=== PATIENT | female | born 1940 | race Caucasian/White ===

== ENCOUNTER 2018-03-31 13:38 | Inpatient (IN) | payer MEDICARE, OTHER ==
[~2018-03-31] VITALS: Ht 165.1 cm; Wt 84.5 kg
[~2018-03-31 13:38] MED LIST: LISI10TA4 PO; NITR100C6 PO; POTA10TA36 PO; TRAM50TA2 PO
[2018-03-31] MEDS ORDERED: ondansetron/PF 4mg/2ml inj IV ONE (13:45)
[2018-03-31] MEDS ORDERED: normal saline 1000ML IV soln IVB ONE ×3 (13:45→15:05)
[2018-03-31 14:26] LABS: BASOPHILS % (AUTO) 0.1 % (0-1); EOSINOPHILS % (AUTO) 0.1 % (0-6); HEMATOCRIT 39.7 % (35.0-45.0); HEMOGLOBIN 12.7 g/dl (12.0-16.0); LYMPHOCYTES # (AUTO) 0.2 X10'3 (1.1-4.8); LYMPHOCYTES % (AUTO) 1.6 % (21-51); MEAN CORPUSCULAR HEMOGLOBIN 27.5 PG (27.0-31.0); MEAN CORPUSCULAR HGB CONC 32.1 % (33.0-36.5); MEAN CORPUSCULAR VOLUME 85.8 FL (78-98); MEAN PLATELET VOLUME 9.6 FL (7.4-10.4); MONOCYTES # (AUTO) 0.5 X10'3 (0-0.9); NEUTROPHILS # (AUTO) 11.3 X10'3 (1.8-7.7); NEUTROPHILS % (AUTO) 94.2 % (42-75); PLATELET COUNT 181 X10'3 (140-440); RED BLOOD COUNT 4.63 X10'6 (4.20-5.60)
[2018-03-31 14:35] LABS: INR 1.2 INR; PARTIAL THROMBOPLASTIN TIME 25 SECONDS (22-32); PROTHROMBIN TIME 12.1 SECONDS (9.0-12.0)
[2018-03-31 14:39] LABS: ANISOCYTOSIS 3+; MICROCYTOSIS 1+; PLATELET ESTIMATE NORMAL; TOTAL CELLS COUNTED 100
[2018-03-31 14:40] LABS: ACANTHOCYTES 1+; POLYCHROMASIA 1+; SCHISTOCYTES FEW
[2018-03-31 14:42] LABS: ALANINE AMINOTRANSFERASE 44 U/L (12-78); ALBUMIN 3.7 G/DL (3.4-5.0); ALKALINE PHOSPHATASE 240 IU/L (46-116); ANION GAP 17 (8-16); ASPARTATE AMINO TRANSFERASE 65 U/L (10-37); BILIRUBIN,TOTAL 2.2 MG/DL (0.1-1.0); BLOOD UREA NITROGEN 28 MG/DL (7-18); BUN/CREATININE RATIO 13.8 (6.6-38.0); CALCIUM 8.9 MG/DL (8.5-10.1); CHLORIDE 104 MMOL/L (99-107); CREATININE 2.03 MG/DL (0.40-0.90); GLUCOSE 138 MG/DL (70-104); POTASSIUM 3.1 MMOL/L (3.5-5.1); SODIUM 146 MMOL/L (135-145); TOTAL CARBON DIOXIDE 24.7 MMOL/L (24-32); TOTAL PROTEIN 7.4 G/DL (6.4-8.2); eGFR 24 ML/MIN
[2018-03-31 14:50] LABS: LIPASE 62 U/L (73-393); MAGNESIUM 1.8 MG/DL (1.5-2.4)
[2018-03-31 14:55] LABS: CLARITY,URINE CLOUDY (Clear); COLOR,URINE YELLOW (Yellow); GLUCOSE, URINE NEGATIVE (Neg); KETONES,URINE NEGATIVE (Neg); LEUKOCYTE ESTERASE ,URINE SMALL (Neg); NITRITES, URINE NEGATIVE (Neg); OCCULT BLOOD,URINE SMALL (Neg); PH,URINE 5.5 (4.8-8.0); PROTEIN,URINE 100 mg/dl (Neg)
[2018-03-31 14:56] LABS: UA COLLECTION TYPE STRAIGHT CATH
[2018-03-31] MEDS ORDERED: vancomycin inj 1,000 MG in normal saline 250ml IV soln 250 ML IV STA (15:02)
[2018-03-31 15:03] LABS: RBC,URINE 0-2 /HPF (0-2)
[2018-03-31 15:04] LABS: BACTERIA,URINE 2+ /HPF (Neg); MUCUS STRANDS FEW /LPF (Neg); SQUAMOUS EPITHELIAL CELL,UR FEW /LPF (FEW)
[2018-03-31] MEDS ORDERED: piperacillin/tazo 3.375gm/50ml 50 ML IV SCH (15:05)
[2018-03-31] MEDS ORDERED: vancomycin/NS 1 GM ADD-VANTAGE 250 ML IV STA (15:11)
[2018-03-31] MEDS ORDERED: piperacillin/tazo 3.375gm/50ml 50 ML IV ONE (15:11)
[2018-03-31 15:28] LABS: PHOSPHORUS 2.9 MG/DL (2.3-4.5)
[2018-03-31] MEDS ORDERED: ATOR20TA66 (15:39)
[2018-03-31] MEDS ORDERED: CLOP75TA35 (15:39)
[2018-03-31] MEDS ORDERED: SACU1TAB7 (15:39)
[2018-03-31] MEDS ORDERED: FURO20TA4 (15:39)
[2018-03-31] MEDS ORDERED: diphenhydrAMINE 50 mg/ml inj IV ONE (15:45)
[2018-03-31] MEDS: normal saline 1000ml 1,000 ML IV SCH (16:43)
[2018-03-31] MEDS ORDERED: magnesium Cl slow-release 64mg tablet PO PRN (16:45)
[2018-03-31] MEDS ORDERED: magnesium hydroxide 30ml (MOM) UD suspension PO PRN (16:45)
[2018-03-31] MEDS ORDERED: mag hydrox/Alum hydrox/simeth 30ml oral suspension PO PRN (16:45)
[2018-03-31] MEDS ORDERED: potassium Cl 20 mEq SR tablet PO PRN (16:45)
[2018-03-31] MEDS ORDERED: bisacodyl 10mg suppository rectal RC PRN (16:45)
[2018-03-31] MEDS ORDERED: ondansetron/PF 4mg/2ml inj IV PRN (16:45)
[2018-03-31] MEDS ORDERED: magnesium 4gm in 100ml NS 100 ML IV PRN (16:45)
[2018-03-31] MEDS ORDERED: acetaminophen 325mg tablet PO PRN ×2 (16:45)
[2018-03-31] MEDS ORDERED: dextrose ORAL solution 15 GM/59 ML bottle PO PRN ×2 (16:45)
[2018-03-31] MEDS ORDERED: insulin Lispro (HumaLOG) vial - multi-dose SQ SCH (16:45)
[2018-03-31] MEDS ORDERED: potassium Cl 40MEQ/NS 500ml 500 ML IV PRN ×2 (16:45)
[2018-03-31] MEDS ORDERED: morphine 4 MG/ML inj SYRINge IV PRN (16:45)
[2018-03-31] MEDS ORDERED: dextrose 50%-water 50ml dispensing syringe IV PRN ×2 (16:45)
[2018-03-31] MEDS ORDERED: glucagon, human recombinant 1mg kit SUBCUT PRN (16:45)
[2018-03-31] MEDS ORDERED: magnesium/D5W IVPB 50 ML IV PRN (16:45)
[2018-03-31] MEDS ORDERED: acetaminophen 650mg rectal suppository RC PRN (16:45)
[2018-03-31] MEDS ORDERED: MESSAGE TO PHARMACY PO ONE (16:45)
[2018-03-31 17:23] LABS: ETHANOL < 0.010 GM/DL (0.0-0.010)
[2018-03-31 17:34] LABS: HEMOGLOBIN A1C 6.6 % (4.5-6.2)
[2018-03-31 19:00] VITALS: BP 134/77
[2018-03-31] MEDS: piperacillin-tazo 2.25gm/50ml 50 ML IV SCH (19:55)
[2018-03-31] MEDS: furosemide 40mg/4ml inj IV SCH (19:55)
[2018-03-31] MEDS ORDERED: heparin, porcine 5000 units/ml vial SQ SCH (20:00)
[2018-03-31] MEDS: insulin glargine (Lantus) pen - multi-dose SQ SCH (21:00)
[2018-03-31 23:00] VITALS: BP 155/71
[2018-04-01] VITALS (14 sets, daily range): BP systolic 116–170; BP diastolic 57–108
[2018-04-01] MEDS: piperacillin-tazo 2.25gm/50ml 50 ML IV SCH ×4 (02:41→20:53)
[2018-04-01 03:16] LABS: BASOPHILS % (AUTO) 0.1 % (0-1); EOSINOPHILS % (AUTO) 0.3 % (0-6); HEMATOCRIT 35.4 % (35.0-45.0); HEMOGLOBIN 11.3 g/dl (12.0-16.0); LYMPHOCYTES # (AUTO) 0.2 X10'3 (1.1-4.8); LYMPHOCYTES % (AUTO) 2.5 % (21-51); MEAN CORPUSCULAR HEMOGLOBIN 27.5 PG (27.0-31.0); MEAN CORPUSCULAR HGB CONC 31.8 % (33.0-36.5); MEAN CORPUSCULAR VOLUME 86.4 FL (78-98); MEAN PLATELET VOLUME 9.8 FL (7.4-10.4); MONOCYTES # (AUTO) 0.3 X10'3 (0-0.9); NEUTROPHILS % (AUTO) 94.1 % (42-75); PLATELET COUNT 137 X10'3 (140-440); RED CELL DISTRIBUTION WIDTH 22.8 % (11.5-14.5); WHITE BLOOD COUNT 9.5 X10'3 (4.5-11.0)
[2018-04-01 03:30] LABS: ALANINE AMINOTRANSFERASE 29 U/L (12-78); ALBUMIN 2.9 G/DL (3.4-5.0); ALBUMIN/GLOBULIN RATIO 0.9 (1.1-1.5); ALKALINE PHOSPHATASE 154 IU/L (46-116); ANION GAP 12 (8-16); ASPARTATE AMINO TRANSFERASE 36 U/L (10-37); BILIRUBIN,TOTAL 1.5 MG/DL (0.1-1.0); BLOOD UREA NITROGEN 32 MG/DL (7-18); BUN/CREATININE RATIO 14.6 (6.6-38.0); CALCIUM 8.1 MG/DL (8.5-10.1); CHLORIDE 108 MMOL/L (99-107); CREATININE 2.19 MG/DL (0.40-0.90); GLUCOSE 125 MG/DL (70-104); POTASSIUM 4.1 MMOL/L (3.5-5.1); SODIUM 147 MMOL/L (135-145); TOTAL CARBON DIOXIDE 27.2 MMOL/L (24-32); TOTAL PROTEIN 6.2 G/DL (6.4-8.2); eGFR 22 ML/MIN
[2018-04-01 03:33] LABS: CHOL/HDL RATIO 1.6 (0.00-4.99); CHOLESTEROL 84 MG/DL (0-200); HDL CHOLESTEROL 54 MG/DL (35-60); LDL CHOLESTEROL 21 MG/DL (50-100); MAGNESIUM 1.6 MG/DL (1.5-2.4); PHOSPHORUS 4.2 MG/DL (2.3-4.5); TRIGLYCERIDES 69 MG/DL (20-135)
[2018-04-01] MEDS: K and/or MAG REPLACEMENT MC SCH (06:56)
[2018-04-01] MEDS: furosemide 40mg/4ml inj IV SCH ×2 (07:31→20:52)
[2018-04-01] MEDS: HYDROcodone/acetaminophen 5mg/325mg tablet PO PRN ×2 (07:32→20:52)
[2018-04-01] MEDS ORDERED: SACU1TAB7 PO (09:16)
[2018-04-01] MEDS ORDERED: FURO20TA4 PO (09:16)
[2018-04-01] MEDS ORDERED: LISI-600 PO (09:16)
[2018-04-01] MEDS ORDERED: CLOP75TA35 PO (09:16)
[2018-04-01] MEDS ORDERED: ATOR20TA66 PO (09:16)
[2018-04-01] MEDS: vancomycin inj 1,250 MG in normal saline 250ml IV soln 250 ML IV SCH (10:13)
[2018-04-01] MEDS: normal saline 1000ml 1,000 ML IV SCH (11:58)
[2018-04-01] MEDS: lisinopril 20mg tablet PO SCH (12:25)
[2018-04-01 13:08] LABS: URINE AMPHETAMINE SCREEN NEGATIVE (Neg); URINE BARBITUATE SCREEN NEGATIVE (Neg); URINE BENZODIAZEPINES SCREEN NEGATIVE (Neg); URINE CANNABINOID SCREEN NEGATIVE (Neg); URINE COCAINE SCREEN NEGATIVE (Neg); URINE METHADONE SCREEN NEGATIVE (Neg); URINE OPIATE SCREEN POSITIVE (Neg); URINE PHENCYCLIDINE SCREEN NEGATIVE (Neg)
[2018-04-01] MEDS ORDERED: midazolam 2 mg/2 ml injection IV PRN (13:35)
[2018-04-01] MEDS ORDERED: fentaNYL/PF 50MCG/1 ML 2ML syringe IV PRN (13:35)
[2018-04-01] MEDS ORDERED: LIDOcaine 1%/PF 5ML 10 MG/ML VIAL SQ ONE (13:35)
[2018-04-01] MEDS ORDERED: LIDOcaine 1%/PF 5ML 10 MG/ML VIAL ONE (13:42)
[2018-04-01] MEDS ORDERED: iohexol 300 MG/1 ML 50ml polymer ONE (13:43)
[2018-04-01] MEDS ORDERED: diphenhydrAMINE 50 mg/ml inj ONE (14:12)
[2018-04-01] MEDS ORDERED: midazolam 2 mg/2 ml injection ONE (14:13)
[2018-04-01] MEDS ORDERED: fentaNYL/PF 50MCG/1 ML 2ML syringe ONE (14:13)
[2018-04-01] MEDS ORDERED: diphenhydrAMINE 50 mg/ml inj IV ONE (14:55)
[2018-04-01] MEDS: emollient combination-Eucerin 250 ML LOTION TP SCH (20:00)
[2018-04-01] MEDS: insulin glargine (Lantus) pen - multi-dose SQ SCH (21:00)
[2018-04-01] MEDS ORDERED: diltiazem 30mg tablet PO ONE (23:20)
[2018-04-02 03:00] VITALS: BP 132/70
[2018-04-02] MEDS: piperacillin-tazo 2.25gm/50ml 50 ML IV SCH ×2 (03:06→07:28)
[2018-04-02] MEDS: diltiazem 30mg tablet PO SCH ×2 (03:07→07:29)
[2018-04-02 06:03] LABS: BASOPHILS # (AUTO) 0.1 X10'3 (0-0.2); BASOPHILS % (AUTO) 0.5 % (0-1); EOSINOPHILS % (AUTO) 0.4 % (0-6); HEMATOCRIT 33.1 % (35.0-45.0); HEMOGLOBIN 10.6 g/dl (12.0-16.0); LYMPHOCYTES # (AUTO) 0.6 X10'3 (1.1-4.8); LYMPHOCYTES % (AUTO) 4.9 % (21-51); MEAN CORPUSCULAR HEMOGLOBIN 27.4 PG (27.0-31.0); MEAN CORPUSCULAR VOLUME 85.6 FL (78-98); MEAN PLATELET VOLUME 9.7 FL (7.4-10.4); MONOCYTES # (AUTO) 0.7 X10'3 (0-0.9); MONOCYTES % (AUTO) 6.1 % (2-12); NEUTROPHILS # (AUTO) 10.1 X10'3 (1.8-7.7); NEUTROPHILS % (AUTO) 88.1 % (42-75); PLATELET COUNT 158 X10'3 (140-440); RED BLOOD COUNT 3.87 X10'6 (4.20-5.60); RED CELL DISTRIBUTION WIDTH 22.2 % (11.5-14.5); WHITE BLOOD COUNT 11.4 X10'3 (4.5-11.0)
[2018-04-02 06:30] VITALS: BP 142/91
[2018-04-02 06:33] LABS: ALANINE AMINOTRANSFERASE 30 U/L (12-78); ALBUMIN 2.8 G/DL (3.4-5.0); ALBUMIN/GLOBULIN RATIO 0.8 (1.1-1.5); ALKALINE PHOSPHATASE 122 IU/L (46-116); ANION GAP 10 (8-16); ASPARTATE AMINO TRANSFERASE 38 U/L (10-37); BILIRUBIN,TOTAL 1.3 MG/DL (0.1-1.0); BLOOD UREA NITROGEN 37 MG/DL (7-18); BUN/CREATININE RATIO 17.1 (6.6-38.0); CHLORIDE 106 MMOL/L (99-107); CREATININE 2.16 MG/DL (0.40-0.90); GLUCOSE 83 MG/DL (70-104); MAGNESIUM 1.5 MG/DL (1.5-2.4); PHOSPHORUS 3.8 MG/DL (2.3-4.5); SODIUM 144 MMOL/L (135-145); TOTAL CARBON DIOXIDE 27.7 MMOL/L (24-32); TOTAL PROTEIN 6.1 G/DL (6.4-8.2); TROPONIN I 0.05 NG/ML (0.0-0.05); eGFR 22 ML/MIN
[2018-04-02 06:36] LABS: POTASSIUM 3.6 MMOL/L (3.5-5.1)
[2018-04-02] MEDS: atorvastatin 20mg tablet PO SCH (07:28)
[2018-04-02] MEDS: lisinopril 20mg tablet PO SCH (07:29)
[2018-04-02] MEDS: furosemide 40mg/4ml inj IV SCH ×2 (07:29→20:39)
[2018-04-02] MEDS: diphenhydrAMINE 50 mg/ml inj IV PRN ×2 (07:30→20:39)
[2018-04-02] MEDS: K and/or MAG REPLACEMENT MC SCH (08:00)
[2018-04-02] MEDS: emollient combination-Eucerin 250 ML LOTION TP SCH ×2 (08:27→20:00)
[2018-04-02] MEDS: normal saline 1000ml 1,000 ML IV SCH (08:43)
[2018-04-02] MEDS: HYDROcodone/acetaminophen 10/325mg tab PO PRN (10:02)
[2018-04-02] MEDS: vancomycin inj 1,250 MG in normal saline 250ml IV soln 250 ML IV SCH (10:08)
[2018-04-02 11:00] VITALS: BP 148/76
[2018-04-02 15:00] VITALS: BP 134/69
[2018-04-02 19:00] VITALS: BP 156/81
[2018-04-02] MEDS: ampicillin inj 2 GM in normal saline 100ml IV soln 100 ML IV SCH (20:39)
[2018-04-02] MEDS: carvedilol 6.25mg tablet PO SCH (20:39)
[2018-04-02] MEDS: insulin glargine (Lantus) pen - multi-dose SQ SCH (21:00)
[2018-04-02 23:00] VITALS: BP 150/89
[2018-04-03 03:00] VITALS: BP 146/82
[2018-04-03] MEDS: HYDROcodone/acetaminophen 5mg/325mg tablet PO PRN (03:43)
[2018-04-03] MEDS: normal saline 1000ml 1,000 ML IV SCH (04:43)
[2018-04-03 05:34] LABS: BASOPHILS % (AUTO) 0.5 % (0-1); EOSINOPHILS # (AUTO) 0.3 X10'3 (0-0.9); EOSINOPHILS % (AUTO) 3.2 % (0-6); HEMATOCRIT 29.8 % (35.0-45.0); HEMOGLOBIN 9.7 g/dl (12.0-16.0); LYMPHOCYTES # (AUTO) 0.5 X10'3 (1.1-4.8); LYMPHOCYTES % (AUTO) 6.4 % (21-51); MEAN CORPUSCULAR HEMOGLOBIN 27.5 PG (27.0-31.0); MEAN CORPUSCULAR HGB CONC 32.4 % (33.0-36.5); MEAN CORPUSCULAR VOLUME 84.9 FL (78-98); MEAN PLATELET VOLUME 9.6 FL (7.4-10.4); MONOCYTES # (AUTO) 0.5 X10'3 (0-0.9); MONOCYTES % (AUTO) 5.4 % (2-12); NEUTROPHILS # (AUTO) 7.2 X10'3 (1.8-7.7); NEUTROPHILS % (AUTO) 84.5 % (42-75); PLATELET COUNT 138 X10'3 (140-440); RED BLOOD COUNT 3.51 X10'6 (4.20-5.60); RED CELL DISTRIBUTION WIDTH 21.1 % (11.5-14.5); WHITE BLOOD COUNT 8.5 X10'3 (4.5-11.0)
[2018-04-03 06:00] VITALS: BP 130/70
[2018-04-03 06:22] LABS: ALANINE AMINOTRANSFERASE 33 U/L (12-78); ALBUMIN 2.5 G/DL (3.4-5.0); ALBUMIN/GLOBULIN RATIO 0.8 (1.1-1.5); ALKALINE PHOSPHATASE 105 IU/L (46-116); ANION GAP 8 (8-16); ASPARTATE AMINO TRANSFERASE 26 U/L (10-37); BILIRUBIN,TOTAL 1.1 MG/DL (0.1-1.0); BLOOD UREA NITROGEN 37 MG/DL (7-18); BUN/CREATININE RATIO 18.9 (6.6-38.0); CALCIUM 7.6 MG/DL (8.5-10.1); CHLORIDE 105 MMOL/L (99-107); CREATININE 1.96 MG/DL (0.40-0.90); GLUCOSE 100 MG/DL (70-104); MAGNESIUM 1.5 MG/DL (1.5-2.4); SODIUM 143 MMOL/L (135-145); TOTAL PROTEIN 5.5 G/DL (6.4-8.2); eGFR 25 ML/MIN
[2018-04-03 06:44] LABS: POTASSIUM 2.6 MMOL/L (3.5-5.1)
[2018-04-03] MEDS: furosemide 40mg/4ml inj IV SCH ×2 (07:19→20:41)
[2018-04-03] MEDS: potassium Cl 20 mEq SR tablet PO PRN ×3 (07:21→15:56)
[2018-04-03] MEDS: atorvastatin 20mg tablet PO SCH (07:21)
[2018-04-03] MEDS: carvedilol 6.25mg tablet PO SCH ×2 (07:21→20:41)
[2018-04-03] MEDS: lisinopril 20mg tablet PO SCH (07:21)
[2018-04-03] MEDS: diphenhydrAMINE 50 mg/ml inj IV PRN (07:22)
[2018-04-03] MEDS: ampicillin inj 2 GM in normal saline 100ml IV soln 100 ML IV SCH ×2 (07:22→20:41)
[2018-04-03] MEDS: emollient combination-Eucerin 250 ML LOTION TP SCH ×2 (07:45→20:41)
[2018-04-03] MEDS: K and/or MAG REPLACEMENT MC SCH (08:00)
[2018-04-03] MEDS ORDERED: potassium Cl 40MEQ/NS 500ml 500 ML IV PRN ×2 (08:00)
[2018-04-03] MEDS ORDERED: potassium Cl 20 mEq SR tablet PO PRN ×2 (08:00)
[2018-04-03] MEDS: potassium Cl 20 mEq SR tablet PO SCH ×3 (08:00→11:39)
[2018-04-03] MEDS: HYDROcodone/acetaminophen 10/325mg tab PO PRN (09:06)
[2018-04-03 11:00] VITALS: BP 140/70
[2018-04-03 15:00] VITALS: BP 129/78
[2018-04-03 18:00] VITALS: BP 160/87
[2018-04-03] MEDS: lactobacillus rhamnosus 10,000 MMU CELLS/CAPSULE PO SCH (20:41)
[2018-04-03] MEDS: insulin glargine (Lantus) pen - multi-dose SQ SCH (21:00)
[2018-04-03 22:00] VITALS: BP 150/77
[2018-04-04 04:58] LABS: BASOPHILS # (AUTO) 0.1 X10'3 (0-0.2); BASOPHILS % (AUTO) 0.8 % (0-1); EOSINOPHILS # (AUTO) 0.2 X10'3 (0-0.9); EOSINOPHILS % (AUTO) 2.9 % (0-6); HEMOGLOBIN 11.1 g/dl (12.0-16.0); LYMPHOCYTES # (AUTO) 0.6 X10'3 (1.1-4.8); LYMPHOCYTES % (AUTO) 9.4 % (21-51); MEAN CORPUSCULAR HEMOGLOBIN 27.3 PG (27.0-31.0); MEAN CORPUSCULAR HGB CONC 31.8 % (33.0-36.5); MEAN CORPUSCULAR VOLUME 85.7 FL (78-98); MEAN PLATELET VOLUME 9.8 FL (7.4-10.4); MONOCYTES # (AUTO) 0.5 X10'3 (0-0.9); MONOCYTES % (AUTO) 7.7 % (2-12); NEUTROPHILS # (AUTO) 5.3 X10'3 (1.8-7.7); NEUTROPHILS % (AUTO) 79.2 % (42-75); PLATELET COUNT 157 X10'3 (140-440); RED BLOOD COUNT 4.08 X10'6 (4.20-5.60); WHITE BLOOD COUNT 6.6 X10'3 (4.5-11.0)
[2018-04-04 05:25] VITALS: BP 167/107
[2018-04-04 05:27] LABS: ALANINE AMINOTRANSFERASE 28 U/L (12-78); ALBUMIN 2.8 G/DL (3.4-5.0); ALBUMIN/GLOBULIN RATIO 0.8 (1.1-1.5); ALKALINE PHOSPHATASE 122 IU/L (46-116); ASPARTATE AMINO TRANSFERASE 23 U/L (10-37); BILIRUBIN,TOTAL 1.1 MG/DL (0.1-1.0); BLOOD UREA NITROGEN 37 MG/DL (7-18); BUN/CREATININE RATIO 21.9 (6.6-38.0); CALCIUM 8.1 MG/DL (8.5-10.1); CHLORIDE 106 MMOL/L (99-107); CREATININE 1.69 MG/DL (0.40-0.90); GLUCOSE 139 MG/DL (70-104); MAGNESIUM 1.5 MG/DL (1.5-2.4); POTASSIUM 3.7 MMOL/L (3.5-5.1); TOTAL CARBON DIOXIDE 27.7 MMOL/L (24-32); TOTAL PROTEIN 6.2 G/DL (6.4-8.2); eGFR 30 ML/MIN
[2018-04-04 05:49] LABS: ANION GAP 11 (8-16); SODIUM 145 MMOL/L (135-145)
[2018-04-04 06:00] VITALS: BP 153/84
[2018-04-04] MEDS: K and/or MAG REPLACEMENT MC SCH (07:08)
[2018-04-04] MEDS: atorvastatin 20mg tablet PO SCH (07:30)
[2018-04-04] MEDS: furosemide 40mg/4ml inj IV SCH ×2 (07:30→19:52)
[2018-04-04] MEDS: lactobacillus rhamnosus 10,000 MMU CELLS/CAPSULE PO SCH ×2 (07:30→19:52)
[2018-04-04] MEDS: carvedilol 6.25mg tablet PO SCH ×2 (07:30→19:52)
[2018-04-04] MEDS: potassium Cl 20 mEq SR tablet PO SCH (07:31)
[2018-04-04] MEDS: HYDROcodone/acetaminophen 5mg/325mg tablet PO PRN ×2 (07:31→17:11)
[2018-04-04] MEDS: emollient combination-Eucerin 250 ML LOTION TP SCH ×2 (07:32→19:53)
[2018-04-04] MEDS: ampicillin inj 2 GM in normal saline 100ml IV soln 100 ML IV SCH ×2 (07:32→19:52)
[2018-04-04] MEDS: lisinopril 20mg tablet PO SCH (07:32)
[2018-04-04] MEDS ORDERED: VANCOMYCIN LEVEL IV ONE (09:30)
[2018-04-04 11:00] VITALS: BP 156/87
[2018-04-04 15:00] VITALS: BP 140/76
[2018-04-04 18:00] VITALS: BP 155/77
[2018-04-04] MEDS: insulin glargine (Lantus) pen - multi-dose SQ SCH (21:00)
[2018-04-04 22:00] VITALS: BP 137/86
[2018-04-05 02:00] VITALS: BP 111/50
[2018-04-05] MEDS: HYDROcodone/acetaminophen 10/325mg tab PO PRN (03:51)
[2018-04-05 05:51] LABS: BASOPHILS % (AUTO) 0.1 % (0-1); EOSINOPHILS # (AUTO) 0.2 X10'3 (0-0.9); HEMATOCRIT 35.1 % (35.0-45.0); HEMOGLOBIN 11.3 g/dl (12.0-16.0); LYMPHOCYTES # (AUTO) 0.9 X10'3 (1.1-4.8); LYMPHOCYTES % (AUTO) 15.4 % (21-51); MEAN CORPUSCULAR HEMOGLOBIN 27.7 PG (27.0-31.0); MEAN CORPUSCULAR HGB CONC 32.3 % (33.0-36.5); MEAN CORPUSCULAR VOLUME 85.7 FL (78-98); MEAN PLATELET VOLUME 9.8 FL (7.4-10.4); MONOCYTES # (AUTO) 0.6 X10'3 (0-0.9); MONOCYTES % (AUTO) 9.7 % (2-12); NEUTROPHILS # (AUTO) 4.4 X10'3 (1.8-7.7); NEUTROPHILS % (AUTO) 71.8 % (42-75); PLATELET COUNT 167 X10'3 (140-440); RED BLOOD COUNT 4.09 X10'6 (4.20-5.60); RED CELL DISTRIBUTION WIDTH 20.2 % (11.5-14.5); WHITE BLOOD COUNT 6.1 X10'3 (4.5-11.0)
[2018-04-05 06:00] VITALS: BP 156/88
[2018-04-05 06:09] LABS: ALANINE AMINOTRANSFERASE 28 U/L (12-78); ALBUMIN/GLOBULIN RATIO 0.9 (1.1-1.5); ALKALINE PHOSPHATASE 129 IU/L (46-116); ANION GAP 12 (8-16); ASPARTATE AMINO TRANSFERASE 23 U/L (10-37); BILIRUBIN,TOTAL 1.1 MG/DL (0.1-1.0); BLOOD UREA NITROGEN 35 MG/DL (7-18); BUN/CREATININE RATIO 21.1 (6.6-38.0); CHLORIDE 105 MMOL/L (99-107); CREATININE 1.66 MG/DL (0.40-0.90); GLUCOSE 115 MG/DL (70-104); MAGNESIUM 1.6 MG/DL (1.5-2.4); PHOSPHORUS 3.2 MG/DL (2.3-4.5); POTASSIUM 3.8 MMOL/L (3.5-5.1); SODIUM 146 MMOL/L (135-145); TOTAL CARBON DIOXIDE 28.7 MMOL/L (24-32); TOTAL PROTEIN 6.4 G/DL (6.4-8.2); eGFR 30 ML/MIN
[2018-04-05] MEDS: lactobacillus rhamnosus 10,000 MMU CELLS/CAPSULE PO SCH ×2 (07:15→20:03)
[2018-04-05] MEDS: ampicillin inj 2 GM in normal saline 100ml IV soln 100 ML IV SCH ×2 (07:15→20:04)
[2018-04-05] MEDS: potassium Cl 20 mEq SR tablet PO SCH (07:15)
[2018-04-05] MEDS: furosemide 40mg/4ml inj IV SCH ×2 (07:15→20:02)
[2018-04-05] MEDS: atorvastatin 20mg tablet PO SCH (07:15)
[2018-04-05] MEDS: lisinopril 20mg tablet PO SCH (07:15)
[2018-04-05] MEDS: carvedilol 6.25mg tablet PO SCH ×2 (07:15→20:03)
[2018-04-05] MEDS: emollient combination-Eucerin 250 ML LOTION TP SCH ×2 (07:16→20:12)
[2018-04-05] MEDS: K and/or MAG REPLACEMENT MC SCH (08:00)
[2018-04-05 11:00] VITALS: BP 143/88
[2018-04-05] MEDS: HYDROcodone/acetaminophen 5mg/325mg tablet PO PRN (11:38)
[2018-04-05] MEDS: diphenhydrAMINE 50 mg/ml inj IV PRN (12:16)
[2018-04-05] MEDS: morphine 4 MG/ML inj SYRINge IV PRN (12:16)
[2018-04-05 15:00] VITALS: BP 127/63
[2018-04-05] MEDS ORDERED: diphenhydrAMINE 25mg capsule PO ONE (16:20)
[2018-04-05 18:00] VITALS: BP 162/90
[2018-04-05] MEDS: apixaban 5mg tablet PO SCH (20:04)
[2018-04-05] MEDS: insulin glargine (Lantus) pen - multi-dose SQ SCH (21:00)
[2018-04-05 22:00] VITALS: BP 153/81
[2018-04-06] MEDS: HYDROcodone/acetaminophen 10/325mg tab PO PRN ×3 (02:02→21:07)
[2018-04-06 06:00] VITALS: BP 147/78
[2018-04-06] MEDS: K and/or MAG REPLACEMENT MC SCH (08:00)
[2018-04-06] MEDS: furosemide 40mg/4ml inj IV SCH ×2 (08:13→20:07)
[2018-04-06] MEDS: apixaban 5mg tablet PO SCH ×2 (08:13→20:07)
[2018-04-06] MEDS: atorvastatin 20mg tablet PO SCH (08:13)
[2018-04-06] MEDS: lactobacillus rhamnosus 10,000 MMU CELLS/CAPSULE PO SCH ×2 (08:13→20:07)
[2018-04-06] MEDS: carvedilol 6.25mg tablet PO SCH ×2 (08:13→20:07)
[2018-04-06] MEDS: lisinopril 20mg tablet PO SCH (08:13)
[2018-04-06] MEDS: ampicillin inj 2 GM in normal saline 100ml IV soln 100 ML IV SCH ×2 (08:14→20:07)
[2018-04-06] MEDS: emollient combination-Eucerin 250 ML LOTION TP SCH ×2 (08:14→20:08)
[2018-04-06] MEDS: potassium Cl 20 mEq SR tablet PO SCH (08:14)
[2018-04-06] MEDS: diphenhydrAMINE 50 mg/ml inj IV PRN ×2 (08:23→20:43)
[2018-04-06 11:00] VITALS: BP 146/75
[2018-04-06] MEDS: diphenhydrAMINE 25mg capsule PO PRN (11:09)
[2018-04-06 15:00] VITALS: BP 157/91
[2018-04-06 19:00] VITALS: BP 150/75
[2018-04-06] MEDS: insulin glargine (Lantus) pen - multi-dose SQ SCH (21:00)
[2018-04-06 23:00] VITALS: BP 147/68
[2018-04-07 03:00] VITALS: BP 157/84
[2018-04-07] MEDS: HYDROcodone/acetaminophen 10/325mg tab PO PRN ×2 (03:19→19:37)
[2018-04-07] MEDS: diphenhydrAMINE 50 mg/ml inj IV PRN (04:57)
[2018-04-07 05:37] LABS: BASOPHILS # (AUTO) 0.1 X10'3 (0-0.2); EOSINOPHILS # (AUTO) 0.3 X10'3 (0-0.9); EOSINOPHILS % (AUTO) 4.4 % (0-6); HEMOGLOBIN 10.8 g/dl (12.0-16.0); LYMPHOCYTES # (AUTO) 1.1 X10'3 (1.1-4.8); LYMPHOCYTES % (AUTO) 16.1 % (21-51); MEAN CORPUSCULAR HEMOGLOBIN 27.2 PG (27.0-31.0); MEAN CORPUSCULAR HGB CONC 31.8 % (33.0-36.5); MEAN CORPUSCULAR VOLUME 85.3 FL (78-98); MEAN PLATELET VOLUME 9.2 FL (7.4-10.4); MONOCYTES # (AUTO) 0.7 X10'3 (0-0.9); NEUTROPHILS # (AUTO) 4.6 X10'3 (1.8-7.7); NEUTROPHILS % (AUTO) 68.5 % (42-75); PLATELET COUNT 167 X10'3 (140-440); RED BLOOD COUNT 3.99 X10'6 (4.20-5.60); RED CELL DISTRIBUTION WIDTH 21.2 % (11.5-14.5); WHITE BLOOD COUNT 6.7 X10'3 (4.5-11.0)
[2018-04-07 06:19] LABS: ALANINE AMINOTRANSFERASE 28 U/L (12-78); ALBUMIN/GLOBULIN RATIO 0.9 (1.1-1.5); ALKALINE PHOSPHATASE 127 IU/L (46-116); ANION GAP 13 (8-16); ASPARTATE AMINO TRANSFERASE 21 U/L (10-37); BILIRUBIN,TOTAL 1.1 MG/DL (0.1-1.0); BLOOD UREA NITROGEN 39 MG/DL (7-18); BUN/CREATININE RATIO 19.8 (6.6-38.0); CALCIUM 7.9 MG/DL (8.5-10.1); CHLORIDE 103 MMOL/L (99-107); CREATININE 1.97 MG/DL (0.40-0.90); GLUCOSE 122 MG/DL (70-104); MAGNESIUM 1.6 MG/DL (1.5-2.4); PHOSPHORUS 3.3 MG/DL (2.3-4.5); POTASSIUM 3.2 MMOL/L (3.5-5.1); SODIUM 144 MMOL/L (135-145); TOTAL CARBON DIOXIDE 27.9 MMOL/L (24-32); TOTAL PROTEIN 6.2 G/DL (6.4-8.2); eGFR 25 ML/MIN
[2018-04-07 07:00] VITALS: BP 147/82
[2018-04-07] MEDS: lactobacillus rhamnosus 10,000 MMU CELLS/CAPSULE PO SCH ×2 (07:14→19:32)
[2018-04-07] MEDS: furosemide 40mg/4ml inj IV SCH ×2 (07:15→21:03)
[2018-04-07] MEDS: apixaban 5mg tablet PO SCH ×2 (07:15→19:32)
[2018-04-07] MEDS: atorvastatin 20mg tablet PO SCH (07:15)
[2018-04-07] MEDS: ampicillin inj 2 GM in normal saline 100ml IV soln 100 ML IV SCH ×2 (07:15→21:02)
[2018-04-07] MEDS: potassium Cl 20 mEq SR tablet PO SCH (07:15)
[2018-04-07] MEDS: diphenhydrAMINE 25mg capsule PO PRN ×2 (07:15→21:11)
[2018-04-07] MEDS: carvedilol 6.25mg tablet PO SCH ×2 (07:16→19:32)
[2018-04-07] MEDS: lisinopril 20mg tablet PO SCH (07:16)
[2018-04-07] MEDS: emollient combination-Eucerin 250 ML LOTION TP SCH ×2 (07:30→19:33)
[2018-04-07] MEDS: K and/or MAG REPLACEMENT MC SCH (08:00)
[2018-04-07 11:00] VITALS: BP 157/73
[2018-04-07] MEDS ORDERED: potassium Cl 20 mEq SR tablet PO PRN (11:15)
[2018-04-07] MEDS ORDERED: potassium Cl 40MEQ/NS 500ml 500 ML IV PRN ×2 (11:15)
[2018-04-07] MEDS: potassium Cl 20 mEq SR tablet PO PRN ×2 (11:35→19:32)
[2018-04-07 15:00] VITALS: BP 157/81
[2018-04-07 19:00] VITALS: BP 158/79
[2018-04-07] MEDS: insulin glargine (Lantus) pen - multi-dose SQ SCH (20:14)
[2018-04-07] MEDS: morphine 4 MG/ML inj SYRINge IV PRN (21:03)
[2018-04-07 23:00] VITALS: BP 107/71
[2018-04-08 02:00] VITALS: BP 151/78
[2018-04-08] MEDS: diphenhydrAMINE 25mg capsule PO PRN (02:38)
[2018-04-08 06:25] LABS: BASOPHILS # (AUTO) 0.1 X10'3 (0-0.2); BASOPHILS % (AUTO) 0.7 % (0-1); EOSINOPHILS # (AUTO) 0.3 X10'3 (0-0.9); EOSINOPHILS % (AUTO) 3.7 % (0-6); HEMATOCRIT 33.1 % (35.0-45.0); HEMOGLOBIN 10.7 g/dl (12.0-16.0); LYMPHOCYTES % (AUTO) 13.8 % (21-51); MEAN CORPUSCULAR HEMOGLOBIN 27.3 PG (27.0-31.0); MEAN CORPUSCULAR HGB CONC 32.3 % (33.0-36.5); MEAN CORPUSCULAR VOLUME 84.6 FL (78-98); MONOCYTES # (AUTO) 0.7 X10'3 (0-0.9); MONOCYTES % (AUTO) 9.9 % (2-12); NEUTROPHILS # (AUTO) 5.2 X10'3 (1.8-7.7); NEUTROPHILS % (AUTO) 71.9 % (42-75); PLATELET COUNT 187 X10'3 (140-440); RED BLOOD COUNT 3.91 X10'6 (4.20-5.60); RED CELL DISTRIBUTION WIDTH 20.8 % (11.5-14.5); WHITE BLOOD COUNT 7.3 X10'3 (4.5-11.0)
[2018-04-08 06:44] LABS: ALANINE AMINOTRANSFERASE 23 U/L (12-78); ALBUMIN 3.1 G/DL (3.4-5.0); ALBUMIN/GLOBULIN RATIO 0.9 (1.1-1.5); ALKALINE PHOSPHATASE 122 IU/L (46-116); ANION GAP 8 (8-16); ASPARTATE AMINO TRANSFERASE 18 U/L (10-37); BILIRUBIN,TOTAL 1.1 MG/DL (0.1-1.0); CALCIUM 8.3 MG/DL (8.5-10.1); CHLORIDE 104 MMOL/L (99-107); CREATININE 1.82 MG/DL (0.40-0.90); GLUCOSE 102 MG/DL (70-104); MAGNESIUM 1.7 MG/DL (1.5-2.4); PHOSPHORUS 3.5 MG/DL (2.3-4.5); POTASSIUM 3.2 MMOL/L (3.5-5.1); SODIUM 142 MMOL/L (135-145); TOTAL CARBON DIOXIDE 29.8 MMOL/L (24-32); TOTAL PROTEIN 6.4 G/DL (6.4-8.2); eGFR 27 ML/MIN
[2018-04-08 06:47] LABS: ELLIPTOCYTES 1+; PLATELET ESTIMATE NORMAL; SCHISTOCYTES FEW
[2018-04-08 07:00] VITALS: BP 109/78
[2018-04-08] MEDS: apixaban 5mg tablet PO SCH (07:08)
[2018-04-08] MEDS: furosemide 40mg/4ml inj IV SCH (07:08)
[2018-04-08] MEDS: ampicillin inj 2 GM in normal saline 100ml IV soln 100 ML IV SCH (07:08)
[2018-04-08] MEDS: lactobacillus rhamnosus 10,000 MMU CELLS/CAPSULE PO SCH (07:09)
[2018-04-08] MEDS: atorvastatin 20mg tablet PO SCH (07:09)
[2018-04-08] MEDS: potassium Cl 20 mEq SR tablet PO SCH (07:09)
[2018-04-08] MEDS: diphenhydrAMINE 50 mg/ml inj IV PRN (07:09)
[2018-04-08] MEDS: carvedilol 6.25mg tablet PO SCH (07:09)
[2018-04-08] MEDS: potassium Cl 20 mEq SR tablet PO PRN (07:09)
[2018-04-08] MEDS: lisinopril 20mg tablet PO SCH (07:09)
[2018-04-08 07:13] LABS: BLOOD UREA NITROGEN 37 MG/DL (7-18); BUN/CREATININE RATIO 20.3 (6.6-38.0)
[2018-04-08] MEDS: emollient combination-Eucerin 250 ML LOTION TP SCH (07:21)
[2018-04-08] MEDS: K and/or MAG REPLACEMENT MC SCH (08:00)
[2018-04-08 11:00] VITALS: BP 125/66
== END 2018-04-08 15:00 | DRG 871 ==
LOC: ER 13:39 → ED HOLD 16:43 → EDBEDREQ 17:29 → PCU 3S 17:50
PROVIDERS: ADMIT Family Medicine; ATTEND Family Medicine
PROC: 0T9130Z Drainage of Left Kidney with Drainage Device, Percutaneous Approach (ICD-10-PCS; principal; 2018-04-01)
PROC: 30233R1 Transfusion of Nonautologous Platelets into Peripheral Vein, Percutaneous Approach (ICD-10-PCS; 2018-04-01)
DX: A41.9 Sepsis, unspecified organism (principal); G93.40 Encephalopathy, unspecified; R65.21 Severe sepsis with septic shock; J69.0 Pneumonitis due to inhalation of food and vomit; I50.21 Acute systolic (congestive) heart failure; I21.A1 Myocardial infarction type 2; N39.0 Urinary tract infection, site not specified; N17.9 Acute kidney failure, unspecified; R18.8 Other ascites; E87.0 Hyperosmolality and hypernatremia; I13.0 Hypertensive heart and chronic kidney disease with heart failure and stage 1 through stage 4 chronic kidney disease, or unspecified chronic kidney disease; I48.92 Unspecified atrial flutter; L03.115 Cellulitis of right lower limb; L03.311 Cellulitis of abdominal wall; Q62.11 Congenital occlusion of ureteropelvic junction; F02.80 Dementia in other diseases classified elsewhere, unspecified severity, without behavioral disturbance, psychotic disturbance, mood disturbance, and anxiety; E87.6 Hypokalemia; E86.0 Dehydration; N18.9 Chronic kidney disease, unspecified; I48.91 Unspecified atrial fibrillation; Z60.2 Problems related to living alone; L89.620 Pressure ulcer of left heel, unstageable; L89.610 Pressure ulcer of right heel, unstageable; D64.9 Anemia, unspecified; R31.9 Hematuria, unspecified; G30.9 Alzheimer's disease, unspecified; E11.22 Type 2 diabetes mellitus with diabetic chronic kidney disease; M54.9 Dorsalgia, unspecified; E11.42 Type 2 diabetes mellitus with diabetic polyneuropathy; E78.00 Pure hypercholesterolemia, unspecified; E78.5 Hyperlipidemia, unspecified; I08.1 Rheumatic disorders of both mitral and tricuspid valves; Z96.651 Presence of right artificial knee joint; G89.29 Other chronic pain; Z91.14 Patient's other noncompliance with medication regimen; Z91.19 Patient's noncompliance with other medical treatment and regimen; Z90.49 Acquired absence of other specified parts of digestive tract; Z91.041 Radiographic dye allergy status; Z79.899 Other long term (current) drug therapy; Z79.02 Long term (current) use of antithrombotics/antiplatelets
CPT/HCPCS: 36415; 50432; 71045; 74176; 76937; 80053; 80061; 80305; 80320; 81001; 82948; 83036; 83605; 83690; 83735; 83880; 84100; 84132; 84145; 84484; 85025; 85610; 85730; 86885; 86900; 86901; 87040; 87070; 87077; 87088; 87186; 93005; 93306; 96361; 96365; 96367; 96375; 97110; 97116; 97161; 97530; 99152; 99153; 99285; A4344; A6212; A6213; A6250; A6257; A6258; A6449; C1729; J0290; J1200; J1815; J1940; J2001; J2250; J2270; J2405; J2543; J3010; J3370; J7030; P9035; Q0163; Q9967

== ENCOUNTER 2021-11-21 06:59 | Emergency (ER) | payer MEDICARE ==
[~2021-11-21] VITALS: Ht 167.6 cm; Wt 90.9 kg
[~2021-11-21 06:59] MED LIST changes: +ATOR20TA66 PO; +CLOP75TA34 PO; +FURO20TA4 PO; -LISI10TA4 PO; +LISI20TA28 PO; -NITR100C6 PO; +POTA-205 PO; -POTA10TA36 PO; +SACU1TAB7 PO
[2021-11-21 07:26] VITALS: BP 128/72
[2021-11-21] MEDS ORDERED: valacyclovir 500mg tablet PO STA (09:14)
[2021-11-21] MEDS ORDERED: predniSONE 20 mg tablet PO ONE (09:15)
[2021-11-21] MEDS ORDERED: VALA100031 PO (09:17)
[2021-11-21] MEDS ORDERED: PRED20TA PO (09:17)
[2021-11-21] MEDS ORDERED: HYDR-3972 PO (09:17)
== END 2021-11-21 10:01 | disposition home or self-care (01) ==
LOC: ER 07:00
DX: B02.9 Zoster without complications (principal); F03.90 Unspecified dementia, unspecified severity, without behavioral disturbance, psychotic disturbance, mood disturbance, and anxiety; E11.43 Type 2 diabetes mellitus with diabetic autonomic (poly)neuropathy; E78.00 Pure hypercholesterolemia, unspecified; I10 Essential (primary) hypertension; G89.29 Other chronic pain; Z87.440 Personal history of urinary (tract) infections; Z90.49 Acquired absence of other specified parts of digestive tract; Z90.710 Acquired absence of both cervix and uterus; Z79.899 Other long term (current) drug therapy; Z79.2 Long term (current) use of antibiotics
CPT/HCPCS: 99283; J7512

== ENCOUNTER 2022-01-10 15:07 | Inpatient (IN) | payer MEDICARE ==
[~2022-01-10] VITALS: Ht 167.6 cm; Wt 75.0 kg
[~2022-01-10 15:07] MED LIST changes: +VALA100031 PO
[2022-01-10] MEDS ORDERED: normal saline 1000ML IV soln IV ONE (15:30)
[2022-01-10] MEDS ORDERED: CefTRIAXone 2gm/NS 100ml IVPB 100 ML IV ONE (15:30)
[2022-01-10 16:07] LABS: BASOPHILS % (AUTO) 0.5 % (0-1); EOSINOPHILS # (AUTO) 0.1 X10'3 (0-0.9); EOSINOPHILS % (AUTO) 0.7 % (0-6); HEMATOCRIT 39.7 % (35.0-45.0); HEMOGLOBIN 12.6 g/dl (12.0-16.0); LYMPHOCYTES # (AUTO) 0.6 X10'3 (1.1-4.8); LYMPHOCYTES % (AUTO) 6.2 % (21-51); MEAN CORPUSCULAR HGB CONC 31.9 g/dL (33.0-36.5); MEAN CORPUSCULAR VOLUME 91.2 FL (78-98); MONOCYTES # (AUTO) 0.8 X10'3 (0-0.9); MONOCYTES % (AUTO) 8.4 % (2-12); NEUTROPHILS # (AUTO) 7.8 X10'3 (1.8-7.7); NEUTROPHILS % (AUTO) 84.2 % (42-75); PLATELET COUNT 200 X10'3 (140-440); RED BLOOD COUNT 4.35 X10'6 (4.20-5.60); RED CELL DISTRIBUTION WIDTH 19.2 % (11.5-14.5); WHITE BLOOD COUNT 9.3 X10'3 (4.5-11.0)
[2022-01-10 16:14] LABS: ALANINE AMINOTRANSFERASE 36 U/L (12-78); ALBUMIN 3.7 G/DL (3.4-5.0); ALBUMIN/GLOBULIN RATIO 1.3 (1.1-1.5); ALKALINE PHOSPHATASE 71 IU/L (46-116); ANION GAP 14 (8-16); ASPARTATE AMINO TRANSFERASE 55 U/L (10-37); BILIRUBIN,TOTAL 2.7 MG/DL (0.1-1.0); BLOOD UREA NITROGEN 63 MG/DL (7-18); BUN/CREATININE RATIO 24.7 (6.6-38.0); CALCIUM 8.6 MG/DL (8.5-10.1); CHLORIDE 108 MMOL/L (99-107); CREATININE 2.55 MG/DL (0.40-0.90); GLUCOSE 74 MG/DL (70-104); POTASSIUM 4.6 MMOL/L (3.5-5.1); SODIUM 145 MMOL/L (135-145); TOTAL CARBON DIOXIDE 22.7 MMOL/L (24-32); TOTAL PROTEIN 6.5 G/DL (6.4-8.2); eGFR 18 ML/MIN
[2022-01-10 16:39] LABS: CLARITY,URINE CLOUDY (Clear); COLOR,URINE YELLOW (Yellow); GLUCOSE, URINE NEGATIVE (Neg); KETONES,URINE TRACE mg/dl (Neg); LEUKOCYTE ESTERASE ,URINE MODERATE (Neg); NITRITES, URINE NEGATIVE (Neg); OCCULT BLOOD,URINE MODERATE (Neg); PH,URINE 5.5 (4.8-8.0); PROTEIN,URINE 100 mg/dl (Neg)
[2022-01-10 16:43] LABS: UA COLLECTION TYPE STRAIGHT CATH
[2022-01-10 16:47] LABS: BACTERIA,URINE 3+ /HPF (Neg); WBC,URINE TNTC /HPF (0-4)
[2022-01-10 16:48] LABS: SQUAMOUS EPITHELIAL CELL,UR MODERATE /LPF (FEW)
[2022-01-10 17:00] LABS: ANISOCYTOSIS 2+; BURR CELLS 2+; PLATELET ESTIMATE NORMAL
[2022-01-10 17:01] LABS: ELLIPTOCYTES FEW; SCHISTOCYTES FEW
[2022-01-10] MEDS ORDERED: PRED20TA PO (17:51)
[2022-01-10] MEDS ORDERED: HYDR-3972 PO (17:51)
[2022-01-10] MEDS ORDERED: CLOP75TA33 PO (17:51)
[2022-01-10] MEDS ORDERED: ATOR20TA PO (17:51)
[2022-01-10] MEDS ORDERED: SACU1TAB PEG (17:51)
[2022-01-10] MEDS ORDERED: FURO-149 PO (17:51)
--- NOTE | 2022-01-10 17:53 | NUR ---
[facility] ([facility]) [phone]
[2022-01-10] MEDS ORDERED: bisacodyl 10mg suppository rectal RC PRN (18:30)
[2022-01-10] MEDS ORDERED: ondansetron/PF 4mg/2ml inj IV PRN (18:30)
[2022-01-10] MEDS ORDERED: dextrose 50%-water 50ml dispensing syringe IV PRN ×2 (18:30)
[2022-01-10] MEDS ORDERED: potassium CL 10mEq/100ml bag 100 ML IV PRN (18:30)
[2022-01-10] MEDS ORDERED: magnesium 2GM in 50ml NS 50 ML IV PRN (18:30)
[2022-01-10] MEDS ORDERED: magnesium 4gm in 100ml NS 100 ML IV PRN (18:30)
[2022-01-10] MEDS ORDERED: potassium Cl 20 mEq SR tablet PO PRN ×2 (18:30)
[2022-01-10] MEDS ORDERED: insulin Lispro (HumaLOG) vial - multi-dose SQ SCH (18:30)
[2022-01-10] MEDS ORDERED: MESSAGE TO PHARMACY PO ONE (18:30)
[2022-01-10] MEDS ORDERED: HYDROcodone/acetaminophen 5mg/325mg tablet PO PRN (18:30)
[2022-01-10] MEDS ORDERED: acetaminophen 650mg rectal suppository RC PRN (18:30)
[2022-01-10] MEDS ORDERED: acetaminophen 325mg tablet PO PRN ×2 (18:30)
[2022-01-10] MEDS ORDERED: glucagon, human recombinant 1mg kit SUBCUT PRN (18:30)
[2022-01-10] MEDS ORDERED: mag hydrox/Alum hydrox/simeth 30ml oral suspension PO PRN (18:30)
[2022-01-10] MEDS ORDERED: morphine 2 MG/ML inj. syringe IV PRN ×2 (18:30)
[2022-01-10] MEDS ORDERED: magnesium hydroxide 30ml (MOM) UD suspension PO PRN (18:30)
[2022-01-10] MEDS ORDERED: magnesium Cl slow-release 64mg tablet PO PRN (18:30)
[2022-01-10] MEDS ORDERED: DEXTROSE 15 GM of carb/4 tabs (each vial/BOTTLE has 4 tablets) PO PRN ×2 (18:30)
[2022-01-10] MEDS: normal saline 1000ml 1,000 ML IV SCH ×2 (18:38→23:14)
[2022-01-10 20:00] VITALS: BP 156/58
[2022-01-10] MEDS: K and/or MAG REPLACEMENT MC SCH (20:00)
[2022-01-10] MEDS: sacubitril/valsartan 24mg-26mg tablet PO SCH (20:14)
[2022-01-10] MEDS: docusate sod 100mg capsule PO SCH (20:14)
[2022-01-10] MEDS: heparin, porcine 5000 units/ml vial SQ SCH (20:15)
[2022-01-10] MEDS: insulin glargine (Lantus) pen - multi-dose SQ SCH (21:00)
--- NOTE | 2022-01-10 21:36 | NUR ---
pt BGL taken at 60. pt given juice
[2022-01-10 22:00] VITALS: BP 186/76
[2022-01-11] MEDS: HYDROcodone/acetaminophen 10/325mg tab PO PRN (00:10)
[2022-01-11 02:00] VITALS: BP 148/74
[2022-01-11 06:00] VITALS: BP 185/73
[2022-01-11 06:51] LABS: BASOPHILS # (AUTO) 0.1 X10'3 (0-0.2); EOSINOPHILS # (AUTO) 0.4 X10'3 (0-0.9); EOSINOPHILS % (AUTO) 4.5 % (0-6); HEMOGLOBIN 11.8 g/dl (12.0-16.0); LYMPHOCYTES # (AUTO) 0.7 X10'3 (1.1-4.8); LYMPHOCYTES % (AUTO) 7.6 % (21-51); MEAN CORPUSCULAR HEMOGLOBIN 28.6 PG (27.0-31.0); MEAN CORPUSCULAR HGB CONC 31.9 g/dL (33.0-36.5); MEAN CORPUSCULAR VOLUME 89.9 FL (78-98); MEAN PLATELET VOLUME 8.9 FL (7.4-10.4); MONOCYTES % (AUTO) 10.4 % (2-12); NEUTROPHILS # (AUTO) 7.2 X10'3 (1.8-7.7); NEUTROPHILS % (AUTO) 76.5 % (42-75); PLATELET COUNT 194 X10'3 (140-440); RED BLOOD COUNT 4.12 X10'6 (4.20-5.60); WHITE BLOOD COUNT 9.3 X10'3 (4.5-11.0)
[2022-01-11 07:07] LABS: ALANINE AMINOTRANSFERASE 31 U/L (12-78); ALBUMIN 3.1 G/DL (3.4-5.0); ALBUMIN/GLOBULIN RATIO 1.2 (1.1-1.5); ALKALINE PHOSPHATASE 56 IU/L (46-116); ANION GAP 13 (8-16); ASPARTATE AMINO TRANSFERASE 43 U/L (10-37); BILIRUBIN,TOTAL 1.3 MG/DL (0.1-1.0); BLOOD UREA NITROGEN 67 MG/DL (7-18); BUN/CREATININE RATIO 23.3 (6.6-38.0); CALCIUM 7.6 MG/DL (8.5-10.1); CHLORIDE 112 MMOL/L (99-107); CREATININE 2.87 MG/DL (0.40-0.90); GLUCOSE 90 MG/DL (70-104); POTASSIUM 4.5 MMOL/L (3.5-5.1); SODIUM 146 MMOL/L (135-145); TOTAL CARBON DIOXIDE 21.4 MMOL/L (24-32); TOTAL PROTEIN 5.7 G/DL (6.4-8.2); eGFR 16 ML/MIN
[2022-01-11 07:11] LABS: CHOL/HDL RATIO 4.4 (0.00-4.99); CHOLESTEROL 128 MG/DL (0-200); HDL CHOLESTEROL 29 MG/DL (35-60); LDL CHOLESTEROL 80 MG/DL (50-100); TRIGLYCERIDES 87 MG/DL (20-135)
[2022-01-11 08:13] LABS: MAGNESIUM 2.1 MG/DL (1.5-2.4); PHOSPHORUS 6.8 MG/DL (2.3-4.5)
[2022-01-11] MEDS: cefTRIAXone 1g/NS 100ml IVPB 100 ML IV SCH (08:39)
[2022-01-11] MEDS: atorvastatin 20mg tablet PO SCH (08:40)
[2022-01-11] MEDS: clopidogrel 75mg tablet PO SCH (08:41)
[2022-01-11] MEDS: heparin, porcine 5000 units/ml vial SQ SCH ×2 (08:41→19:52)
[2022-01-11] MEDS: docusate sod 100mg capsule PO SCH ×2 (08:41→19:52)
[2022-01-11] MEDS: sacubitril/valsartan 24mg-26mg tablet PO SCH ×2 (08:46→19:52)
[2022-01-11] MEDS: K and/or MAG REPLACEMENT MC SCH ×2 (08:47→19:33)
[2022-01-11] MEDS: diphenhydrAMINE 25mg capsule PO PRN (09:05)
[2022-01-11 11:00] VITALS: BP 162/58
[2022-01-11 11:05] VITALS: BP 174/66
[2022-01-11 11:10] VITALS: BP 173/70
[2022-01-11 13:28] LABS: HEMOGLOBIN A1C 5.9 % (4.5-6.2)
[2022-01-11] MEDS: normal saline 1000ml 1,000 ML IV SCH (14:30)
[2022-01-11 15:00] VITALS: BP 139/64
[2022-01-11] MEDS: insulin glargine (Lantus) pen - multi-dose SQ SCH (21:00)
[2022-01-12] MEDS: normal saline 1000ml 1,000 ML IV SCH ×3 (00:30→19:32)
[2022-01-12 03:00] VITALS: BP 181/92
[2022-01-12 06:00] VITALS: BP 180/92
[2022-01-12 06:32] LABS: EOSINOPHILS # (AUTO) 0.5 X10'3 (0-0.9); HEMOGLOBIN 11.5 g/dl (12.0-16.0)
[2022-01-12 06:33] LABS: BASOPHILS # (AUTO) 0.1 X10'3 (0-0.2); BASOPHILS % (AUTO) 1.4 % (0-1); EOSINOPHILS % (AUTO) 6.3 % (0-6); HEMATOCRIT 35.9 % (35.0-45.0); LYMPHOCYTES # (AUTO) 0.5 X10'3 (1.1-4.8); LYMPHOCYTES % (AUTO) 7.2 % (21-51); MEAN CORPUSCULAR HEMOGLOBIN 28.8 PG (27.0-31.0); MEAN CORPUSCULAR HGB CONC 32.2 g/dL (33.0-36.5); MEAN CORPUSCULAR VOLUME 89.6 FL (78-98); MEAN PLATELET VOLUME 8.8 FL (7.4-10.4); MONOCYTES # (AUTO) 0.7 X10'3 (0-0.9); MONOCYTES % (AUTO) 9.5 % (2-12); NEUTROPHILS # (AUTO) 5.6 X10'3 (1.8-7.7); NEUTROPHILS % (AUTO) 75.6 % (42-75); PLATELET COUNT 182 X10'3 (140-440); RED CELL DISTRIBUTION WIDTH 18.9 % (11.5-14.5); WHITE BLOOD COUNT 7.4 X10'3 (4.5-11.0)
[2022-01-12 06:54] LABS: ALANINE AMINOTRANSFERASE 33 U/L (12-78); ALBUMIN 3.1 G/DL (3.4-5.0); ALBUMIN/GLOBULIN RATIO 1.1 (1.1-1.5); ALKALINE PHOSPHATASE 56 IU/L (46-116); ANION GAP 15 (8-16); ASPARTATE AMINO TRANSFERASE 35 U/L (10-37); BILIRUBIN,TOTAL 0.8 MG/DL (0.1-1.0); BLOOD UREA NITROGEN 69 MG/DL (7-18); BUN/CREATININE RATIO 21.7 (6.6-38.0); CALCIUM 7.7 MG/DL (8.5-10.1); CHLORIDE 107 MMOL/L (99-107); CREATININE 3.18 MG/DL (0.40-0.90); GLUCOSE 131 MG/DL (70-104); PHOSPHORUS 5.7 MG/DL (2.3-4.5); POTASSIUM 4.1 MMOL/L (3.5-5.1); SODIUM 142 MMOL/L (135-145); TOTAL CARBON DIOXIDE 20.3 MMOL/L (24-32); TOTAL PROTEIN 5.9 G/DL (6.4-8.2); eGFR 14 ML/MIN
[2022-01-12] MEDS: K and/or MAG REPLACEMENT MC SCH ×2 (08:00→19:07)
[2022-01-12] MEDS: cefTRIAXone 1g/NS 100ml IVPB 100 ML IV SCH (08:35)
[2022-01-12] MEDS: sacubitril/valsartan 24mg-26mg tablet PO SCH (08:36)
[2022-01-12] MEDS: clopidogrel 75mg tablet PO SCH (08:36)
[2022-01-12] MEDS: atorvastatin 20mg tablet PO SCH (08:36)
[2022-01-12] MEDS: heparin, porcine 5000 units/ml vial SQ SCH ×2 (08:36→19:13)
[2022-01-12] MEDS: docusate sod 100mg capsule PO SCH ×2 (08:37→19:13)
[2022-01-12] MEDS: diphenhydrAMINE 25mg capsule PO PRN (09:05)
[2022-01-12 11:00] VITALS: BP 177/84
--- NOTE | 2022-01-12 12:38 | NUR ---
Patient in room U 3014. I have received report from Shikha Walker traveler and had the opportunity to ask questions and assume patient care.
--- NOTE | 2022-01-12 13:30 | NUR ---
Pt came to the floor from PCU, pt is A & o x4 and in no apparent distress. Pt is SL and is appropriate. pt assessed, skin clear except there is a few scratches on bilateral LLE, from itching, dry skin and edematous +1. non- pitting. positive BS, passing gas and no GI symptoms. Pt tucked in and resting.
[2022-01-12 18:00] VITALS: BP 142/74
--- NOTE | 2022-01-12 18:31 | NUR ---
Problems reprioritized. Patient report given, questions answered & plan of care reviewed with brooklynn Walker Traveler.
[2022-01-12] MEDS: insulin glargine (Lantus) pen - multi-dose SQ SCH (21:00)
[2022-01-13] VITALS: BP 152/83
--- NOTE | 2022-01-13 04:57 | NUR ---
Report given to Jesenia Lu RN Charge Nurse for continuation of care. Patient remains in stable condition, sleeping comfortably in the bed.
[2022-01-13 06:40] LABS: BASOPHILS # (AUTO) 0.1 X10'3 (0-0.2); BASOPHILS % (AUTO) 1.3 % (0-1); EOSINOPHILS # (AUTO) 0.4 X10'3 (0-0.9); EOSINOPHILS % (AUTO) 5.8 % (0-6); HEMATOCRIT 34.7 % (35.0-45.0); HEMOGLOBIN 11.2 g/dl (12.0-16.0); LYMPHOCYTES # (AUTO) 0.5 X10'3 (1.1-4.8); LYMPHOCYTES % (AUTO) 8.3 % (21-51); MEAN CORPUSCULAR HEMOGLOBIN 28.9 PG (27.0-31.0); MEAN CORPUSCULAR HGB CONC 32.3 g/dL (33.0-36.5); MEAN CORPUSCULAR VOLUME 89.5 FL (78-98); MEAN PLATELET VOLUME 8.7 FL (7.4-10.4); MONOCYTES # (AUTO) 0.8 X10'3 (0-0.9); MONOCYTES % (AUTO) 12.1 % (2-12); NEUTROPHILS # (AUTO) 4.8 X10'3 (1.8-7.7); NEUTROPHILS % (AUTO) 72.5 % (42-75); PLATELET COUNT 159 X10'3 (140-440); RED BLOOD COUNT 3.87 X10'6 (4.20-5.60); RED CELL DISTRIBUTION WIDTH 19.2 % (11.5-14.5); WHITE BLOOD COUNT 6.6 X10'3 (4.5-11.0)
[2022-01-13 06:51] LABS: ALANINE AMINOTRANSFERASE 34 U/L (12-78); ALBUMIN 3.3 G/DL (3.4-5.0); ALBUMIN/GLOBULIN RATIO 1.1 (1.1-1.5); ALKALINE PHOSPHATASE 51 IU/L (46-116); ANION GAP 16 (8-16); ASPARTATE AMINO TRANSFERASE 29 U/L (10-37); BILIRUBIN,TOTAL 0.8 MG/DL (0.1-1.0); BLOOD UREA NITROGEN 67 MG/DL (7-18); BUN/CREATININE RATIO 24.3 (6.6-38.0); CALCIUM 7.8 MG/DL (8.5-10.1); CHLORIDE 106 MMOL/L (99-107); CREATININE 2.76 MG/DL (0.40-0.90); GLUCOSE 113 MG/DL (70-104); MAGNESIUM 1.9 MG/DL (1.5-2.4); PHOSPHORUS 4.5 MG/DL (2.3-4.5); SODIUM 141 MMOL/L (135-145); TOTAL CARBON DIOXIDE 19.3 MMOL/L (24-32); TOTAL PROTEIN 6.2 G/DL (6.4-8.2); eGFR 17 ML/MIN
--- NOTE | 2022-01-13 07:04 | NUR ---
I did not received report from the night nurse since He left early and no one took over his pts. No updates. (Kevon BOWLING Traveler)
[2022-01-13 07:10] LABS: ANISOCYTOSIS 2+; PLATELET ESTIMATE NORMAL
[2022-01-13 07:11] LABS: ACANTHOCYTES 1+; ELLIPTOCYTES 1+
[2022-01-13] MEDS: atorvastatin 20mg tablet PO SCH (07:34)
[2022-01-13] MEDS: docusate sod 100mg capsule PO SCH ×2 (07:34→20:08)
[2022-01-13] MEDS: clopidogrel 75mg tablet PO SCH (07:34)
[2022-01-13] MEDS: cefTRIAXone 1g/NS 100ml IVPB 100 ML IV SCH (07:35)
[2022-01-13] MEDS: heparin, porcine 5000 units/ml vial SQ SCH ×2 (07:36→20:08)
[2022-01-13] MEDS: HYDROcodone/acetaminophen 10/325mg tab PO PRN ×2 (07:36→16:44)
[2022-01-13] MEDS: normal saline 1000ml 1,000 ML IV SCH ×3 (07:37→20:25)
[2022-01-13 12:00] VITALS: BP 187/95
[2022-01-13 18:00] VITALS: BP 168/92
--- NOTE | 2022-01-13 18:55 | NUR ---
Problems reprioritized. Patient report given, questions answered & plan of care reviewed with Prudence RN.
--- NOTE | 2022-01-13 19:11 | NUR ---
Patient in room DAYDAY 356. I have received report from CHAPIS BOWLING and had the opportunity to ask questions and assume patient care.
[2022-01-13] MEDS: K and/or MAG REPLACEMENT MC SCH (20:00)
[2022-01-13] MEDS: insulin glargine (Lantus) pen - multi-dose SQ SCH (21:00)
[2022-01-14 00:54] VITALS: BP 157/86
[2022-01-14] MEDS: HYDROcodone/acetaminophen 10/325mg tab PO PRN ×2 (02:43→21:05)
[2022-01-14 05:57] LABS: BASOPHILS # (AUTO) 0.1 X10'3 (0-0.2); EOSINOPHILS # (AUTO) 0.4 X10'3 (0-0.9); EOSINOPHILS % (AUTO) 7.3 % (0-6); HEMOGLOBIN 10.5 g/dl (12.0-16.0); LYMPHOCYTES # (AUTO) 0.5 X10'3 (1.1-4.8); LYMPHOCYTES % (AUTO) 9.1 % (21-51); MEAN CORPUSCULAR HEMOGLOBIN 28.7 PG (27.0-31.0); MEAN CORPUSCULAR HGB CONC 31.9 g/dL (33.0-36.5); MEAN CORPUSCULAR VOLUME 89.9 FL (78-98); MEAN PLATELET VOLUME 9.1 FL (7.4-10.4); MONOCYTES # (AUTO) 0.6 X10'3 (0-0.9); MONOCYTES % (AUTO) 12.1 % (2-12); NEUTROPHILS # (AUTO) 3.5 X10'3 (1.8-7.7); NEUTROPHILS % (AUTO) 69.5 % (42-75); PLATELET COUNT 132 X10'3 (140-440); RED BLOOD COUNT 3.67 X10'6 (4.20-5.60); RED CELL DISTRIBUTION WIDTH 19.3 % (11.5-14.5); WHITE BLOOD COUNT 5.1 X10'3 (4.5-11.0)
[2022-01-14 06:18] LABS: ALANINE AMINOTRANSFERASE 28 U/L (12-78); ALBUMIN 3.2 G/DL (3.4-5.0); ALBUMIN/GLOBULIN RATIO 1.1 (1.1-1.5); ALKALINE PHOSPHATASE 45 IU/L (46-116); ANION GAP 11 (8-16); ASPARTATE AMINO TRANSFERASE 24 U/L (10-37); BILIRUBIN,TOTAL 0.5 MG/DL (0.1-1.0); BLOOD UREA NITROGEN 62 MG/DL (7-18); BUN/CREATININE RATIO 27.1 (6.6-38.0); CALCIUM 7.6 MG/DL (8.5-10.1); CHLORIDE 113 MMOL/L (99-107); CREATININE 2.29 MG/DL (0.40-0.90); GLUCOSE 123 MG/DL (70-104); PHOSPHORUS 4.2 MG/DL (2.3-4.5); POTASSIUM 3.8 MMOL/L (3.5-5.1); SODIUM 145 MMOL/L (135-145); TOTAL CARBON DIOXIDE 20.6 MMOL/L (24-32); eGFR 21 ML/MIN
--- NOTE | 2022-01-14 06:25 | NUR ---
Problems reprioritized. Patient report given, questions answered & plan of care reviewed with EVERT RN.
--- NOTE | 2022-01-14 06:30 | NUR ---
Patient in room DAYDAY 356. I have received report from MARIANELA BOWLING and had the opportunity to ask questions and assume patient care.
[2022-01-14 07:59] VITALS: BP 192/96
[2022-01-14] MEDS: K and/or MAG REPLACEMENT MC SCH ×2 (08:00→20:55)
[2022-01-14] MEDS: clopidogrel 75mg tablet PO SCH (08:44)
[2022-01-14] MEDS: docusate sod 100mg capsule PO SCH ×2 (08:44→21:05)
[2022-01-14] MEDS: atorvastatin 20mg tablet PO SCH (08:44)
[2022-01-14] MEDS: cefTRIAXone 1g/NS 100ml IVPB 100 ML IV SCH (08:45)
[2022-01-14] MEDS: heparin, porcine 5000 units/ml vial SQ SCH ×2 (08:50→21:06)
[2022-01-14 12:00] VITALS: BP 198/105
--- NOTE | 2022-01-14 12:14 | NUR ---
PAGER ID: [phone] MESSAGE: EVERT SURG [id number] RE: [id number] [place] PATIENT HASN'T BEEN ABLE TO CONTACT NEICE. PATIENT BP IS ELEVATED AT 196/102 AT THIS TIME, ALSO WILL NOTIFY PT FOR SAFE MOBILITY.
[2022-01-14] MEDS: normal saline 1000ml 1,000 ML IV SCH ×2 (12:30→23:53)
[2022-01-14] MEDS: amLODIPine 5mg tablet PO SCH (13:36)
[2022-01-14 17:28] VITALS: BP 162/92
[2022-01-14 18:00] VITALS: BP 104/69
--- NOTE | 2022-01-14 18:29 | NUR ---
Problems reprioritized. Patient report given, questions answered & plan of care reviewed with PRUDENCE RN.
--- NOTE | 2022-01-14 18:51 | NUR ---
Patient in room DAYDAY 356. I have received report from EVERT BOWLING and had the opportunity to ask questions and assume patient care.
[2022-01-14] MEDS: insulin glargine (Lantus) pen - multi-dose SQ SCH (21:00)
[2022-01-14] MEDS: cloNIDine 0.1 mg tablet PO PRN (23:54)
[2022-01-15] VITALS: BP 193/110
[2022-01-15 01:00] VITALS: BP 160/90
--- NOTE | 2022-01-15 06:25 | NUR ---
Patient in room DAYDAY 356. I have received report from MARIANELA BOWLING and had the opportunity to ask questions and assume patient care.
--- NOTE | 2022-01-15 06:29 | NUR ---
Problems reprioritized. Patient report given, questions answered & plan of care reviewed with EVERT RN.
[2022-01-15 07:33] VITALS: BP 174/89
[2022-01-15] MEDS: K and/or MAG REPLACEMENT MC SCH ×2 (08:00→20:00)
[2022-01-15] MEDS: atorvastatin 20mg tablet PO SCH (08:06)
[2022-01-15] MEDS: clopidogrel 75mg tablet PO SCH (08:06)
[2022-01-15] MEDS: cefTRIAXone 1g/NS 100ml IVPB 100 ML IV SCH (08:07)
[2022-01-15] MEDS: amLODIPine 5mg tablet PO SCH (08:07)
[2022-01-15] MEDS: docusate sod 100mg capsule PO SCH ×2 (08:07→20:21)
[2022-01-15] MEDS: heparin, porcine 5000 units/ml vial SQ SCH ×2 (08:10→20:21)
[2022-01-15] MEDS: normal saline 1000ml 1,000 ML IV SCH ×2 (08:30→20:22)
--- NOTE | 2022-01-15 10:30 | NUR ---
Initial: Pt admitted w/ encephalopathy secondary to UTI and acute on chronic kidney disease per EMR. Currently on Heart Healthy/ carb controlled diet w/ mostly 100% intake of meals meeting needs. D/w RN recommendation to remove Carb controlled restriction given A1c 5.9 and no hx of DM in EMR. Pt noted to be A&O x 1 though able to feed self. LBM 01/13 receiving routine colace. No nutrition intervention implemented at this time, will continue to monitor. Recs: 1. Continue Heart Healthy diet as tolerated, remove Carb Control A1c 5.9 2. Bowel care per rx 3. Scaled wts Addendum: 01/15/22 at [address] Amended: Links added.
[2022-01-15 12:00] VITALS: BP 160/70
--- NOTE | 2022-01-15 12:31 | NUR ---
SPOKE WITH MD, ORDERS RECIEVED TO STOP BG CHECKING AT THIS TIME DUE TO PATIENT LOW A1C OF 5.8
[2022-01-15 17:53] LABS: BASOPHILS # (AUTO) 0.1 X10'3 (0-0.2); BASOPHILS % (AUTO) 1.8 % (0-1); EOSINOPHILS # (AUTO) 0.3 X10'3 (0-0.9); EOSINOPHILS % (AUTO) 6.5 % (0-6); HEMATOCRIT 34.2 % (35.0-45.0); LYMPHOCYTES # (AUTO) 0.4 X10'3 (1.1-4.8); MEAN CORPUSCULAR HEMOGLOBIN 29.1 PG (27.0-31.0); MEAN CORPUSCULAR HGB CONC 32.2 g/dL (33.0-36.5); MEAN CORPUSCULAR VOLUME 90.6 FL (78-98); MONOCYTES # (AUTO) 0.5 X10'3 (0-0.9); MONOCYTES % (AUTO) 10.2 % (2-12); NEUTROPHILS # (AUTO) 3.5 X10'3 (1.8-7.7); NEUTROPHILS % (AUTO) 72.5 % (42-75); PLATELET COUNT 133 X10'3 (140-440); RED BLOOD COUNT 3.78 X10'6 (4.20-5.60); RED CELL DISTRIBUTION WIDTH 19.4 % (11.5-14.5); WHITE BLOOD COUNT 4.9 X10'3 (4.5-11.0)
[2022-01-15 18:00] LABS: ALANINE AMINOTRANSFERASE 31 U/L (12-78); ALBUMIN 3.2 G/DL (3.4-5.0); ALBUMIN/GLOBULIN RATIO 1.1 (1.1-1.5); ALKALINE PHOSPHATASE 52 IU/L (46-116); ANION GAP 11 (8-16); ASPARTATE AMINO TRANSFERASE 21 U/L (10-37); BILIRUBIN,TOTAL 0.5 MG/DL (0.1-1.0); BLOOD UREA NITROGEN 53 MG/DL (7-18); BUN/CREATININE RATIO 27.6 (6.6-38.0); CALCIUM 8.1 MG/DL (8.5-10.1); CHLORIDE 110 MMOL/L (99-107); CREATININE 1.92 MG/DL (0.40-0.90); GLUCOSE 138 MG/DL (70-104); PHOSPHORUS 3.3 MG/DL (2.3-4.5); SODIUM 143 MMOL/L (135-145); TOTAL CARBON DIOXIDE 22.5 MMOL/L (24-32); TOTAL PROTEIN 6.2 G/DL (6.4-8.2); eGFR 25 ML/MIN
[2022-01-15 18:09] LABS: ACANTHOCYTES 1+; ANISOCYTOSIS 2+; BURR CELLS 1+; ELLIPTOCYTES FEW; PLATELET ESTIMATE DECREASED; TEAR DROP CELLS 1+
--- NOTE | 2022-01-15 18:27 | NUR ---
Problems reprioritized. Patient report given, questions answered & plan of care reviewed with TERESA BOWLING.
--- NOTE | 2022-01-15 18:30 | NUR ---
Patient in room DAYDAY 356. I have received report from DASH Toney and had the opportunity to ask questions and assume patient care. Pt was climbing out of bed found by bang BOWLING. [place] [facility] [place] done, voided small amt, back to bed poc with pillows hob elevated. Pt eating dinner call light in reach. Addendum: 01/15/22 at 1849 by Rupesh Adler RN Amended: Links added.
[2022-01-15] MEDS: HYDROcodone/acetaminophen 10/325mg tab PO PRN (20:22)
[2022-01-15] MEDS: insulin glargine (Lantus) pen - multi-dose SQ SCH (21:00)
[2022-01-16] MEDS: HYDROcodone/acetaminophen 10/325mg tab PO PRN (02:54)
[2022-01-16] MEDS: normal saline 1000ml 1,000 ML IV SCH ×2 (04:30→14:30)
--- NOTE | 2022-01-16 06:15 | NUR ---
Problems reprioritized. Patient report given, questions answered & plan of care reviewed with DASH Toney. Addendum: 01/16/22 at 0615 by Rupesh Adler RN Amended: Links added.
--- NOTE | 2022-01-16 06:37 | NUR ---
Patient in room DAYDAY 356. I have received report from Chata BOWLING and had the opportunity to ask questions and assume patient care.
[2022-01-16 07:42] VITALS: BP 162/84
[2022-01-16] MEDS: K and/or MAG REPLACEMENT MC SCH (08:00)
[2022-01-16 08:02] VITALS: BP 162/84
[2022-01-16] MEDS: clopidogrel 75mg tablet PO SCH (08:50)
[2022-01-16] MEDS: docusate sod 100mg capsule PO SCH (08:51)
[2022-01-16] MEDS: cefTRIAXone 1g/NS 100ml IVPB 100 ML IV SCH (08:51)
[2022-01-16] MEDS: atorvastatin 20mg tablet PO SCH (08:51)
[2022-01-16] MEDS: amLODIPine 5mg tablet PO SCH (08:51)
[2022-01-16] MEDS: heparin, porcine 5000 units/ml vial SQ SCH (08:52)
[2022-01-16] MEDS: cloNIDine 0.1 mg tablet PO PRN (11:04)
[2022-01-16 13:00] VITALS: BP 188/93
--- NOTE | 2022-01-16 15:01 | NUR ---
Called report to [facility] no one answered and they are to call back
== END 2022-01-16 15:34 | DRG 689 ==
LOC: ER 15:08 → ED HOLD 18:35 → PCU 3S 23:15 → SUR 3N 01-12 13:22
PROVIDERS: ADMIT Family Medicine; ATTEND Family Medicine
DX: N30.01 Acute cystitis with hematuria (principal); G93.41 Metabolic encephalopathy; I13.0 Hypertensive heart and chronic kidney disease with heart failure and stage 1 through stage 4 chronic kidney disease, or unspecified chronic kidney disease; Z20.822 Contact with and (suspected) exposure to COVID-19; F03.90 Unspecified dementia, unspecified severity, without behavioral disturbance, psychotic disturbance, mood disturbance, and anxiety; E86.0 Dehydration; E78.5 Hyperlipidemia, unspecified; E78.00 Pure hypercholesterolemia, unspecified; I50.9 Heart failure, unspecified; I48.0 Paroxysmal atrial fibrillation; S80.211A Abrasion, right knee, initial encounter; D64.9 Anemia, unspecified; W01.0XXA Fall on same level from slipping, tripping and stumbling without subsequent striking against object, initial encounter; G89.29 Other chronic pain; I25.10 Atherosclerotic heart disease of native coronary artery without angina pectoris; N18.9 Chronic kidney disease, unspecified; E11.22 Type 2 diabetes mellitus with diabetic chronic kidney disease; E11.42 Type 2 diabetes mellitus with diabetic polyneuropathy; S80.212A Abrasion, left knee, initial encounter; Z79.02 Long term (current) use of antithrombotics/antiplatelets; Z79.899 Other long term (current) drug therapy; Y93.89 Activity, other specified; Y92.090 Kitchen in other non-institutional residence as the place of occurrence of the external cause; Y99.8 Other external cause status; Z91.041 Radiographic dye allergy status; Z87.440 Personal history of urinary (tract) infections; Z90.49 Acquired absence of other specified parts of digestive tract
CPT/HCPCS: 36415; 70450; 71045; 80053; 80061; 81001; 82948; 83036; 83605; 83735; 84100; 84145; 84484; 85008; 85025; 87040; 87077; 87081; 87088; 87186; 87635; 93005; 93306; 97110; 97116; 97161; 97530; 99285; C9803; G0378; J0696; J1644; J1815; J7030; Q0163